=== PATIENT | female | born 2005 | race Caucasian/White ===

== ENCOUNTER 2025-07-28 23:50 | Emergency (ER) | payer SELFPAY ==
[2025-07-29 00:29] LABS: MEAN PLATELET VOLUME 11.0 fL (9.4-12.3); NRBC ABSOLUTE 0.00 K/uL (0.00-0.02); NRBC PERCENT 0.0 /100WBC (0.0-0.2); PLATELET COUNT,PLT 314 K/uL (150-400); RED BLOOD CELL COUNT 3.60 M/uL (4.10-5.30); WHITE BLOOD CELL COUNT,WBC 10.31 K/uL (3.9-11.3)
[2025-07-29 00:30] LABS: GLUCOSE,URINE NEGATIVE (NEGATIVE); OCCULT BLOOD,URINE LARGE (NEGATIVE)
[2025-07-29 00:34] LABS: APPEARANCE,URINE SLT CLOUDY
[2025-07-29 00:40] LABS: EPITHELIAL CELLS,URINE FEW (NONE-FEW)
[2025-07-29 00:44] LABS: LACTIC ACID 1.1 mmol/L (0.4-2.0)
[2025-07-29] MEDS: Ondansetron 4 MG/2 ML SDV IVPUSH ONE (00:52)
[2025-07-29] MEDS: Ketorolac 30 MG/ML SDV IVPUSH ONE (00:53)
[2025-07-29] MEDS ORDERED: Naloxone 0.4 MG/ML SDV IVPUSH PRN (00:58)
[2025-07-29 01:02] LABS: A/G RATIO 0.8 (0.9-1.6); ALANINE AMINOTRANSFERASE,ALT 16.0 IU/L (14-63); ASPARTATE AMNIOTRANSFERASE,AST 16.0 IU/L (15-37); BILIRUBIN TOTAL 0.4 mg/dL (0.2-1.0); BLOOD UREA NITROGEN,BUN 8.0 mg/dL (7.0-18.0); CARBON DIOXIDE,CO2 24.3 mmol/L (21.0-32.0); CHLORIDE,CL 101.0 mmol/L (98-107); CREATININE 0.8 mg/dL (0.6-1.0); EST CRCL DRUG DOSING (CG) 94.36 mL/min; GLUCOSE RANDOM 108.0 mg/dL (74-106); POTASSIUM,K 3.3 mmol/L (3.5-5.1); PROTEIN TOTAL,TP 7.6 g/dL (6.4-8.2); SODIUM,NA 135.0 mmol/L (136-145)
[2025-07-29 01:10] LABS: ESTIMATED GFR 107.0 mL/min (>60)
[2025-07-29 01:22] LABS: LYMPHOCYTES ABSOLUTE MAN 2.37 K/uL (1.00-4.80); LYMPHOCYTES PERCENT MAN 23 % (24-44); MONOCYTES ABSOLUTE MAN 1.55 K/uL (0.00-0.80); MONOCYTES PERCENT MAN 15 % (0-8); SEG NEUTROPHILS ABSOLUTE MAN 6.39 K/uL (1.80-7.70); SEG NEUTROPHILS PERCENT MAN 62 % (41-71)
[2025-07-29] MEDS: Iopamidol 755 MG/ML 500 ML Multipack Bottle IVPUSH ONE (01:29)
[2025-07-29] MEDS: cefTRIAXone 1 GM in Water For Injection, Sterile 10 ML IVPUSH ONE (02:08)
== END 2025-07-29 02:53 | disposition home or self-care (01) ==
LOC: MW.ED 23:50
DX: N10 Acute pyelonephritis (principal); Z79.899 Other long term (current) drug therapy; Z75.3 Unavailability and inaccessibility of health-care facilities
CPT/HCPCS: 36415; 74177; 80053; 81001; 81025; 83605; 83690; 85025; 96361; 96374; 96375; 99284; J0696; J1885; J2270; J2405; J7030; Q9967